=== PATIENT | male | born 1970 | race Hispanic/Latino ===

== ENCOUNTER → 2016-10-03 | Outpatient (REF) | payer OTHER ==
[2016-10-03 16:39] LABS: ALBUMIN 4.4 GM/DL (3.2-5.2); ALBUMIN/GLOBULIN RATIO 1.26 (1.00-1.93); ALKALINE PHOSPHATASE 89 U/L (45-117); ALT/SGPT 145 U/L (12-78); ANION GAP 6 MEQ/L (8-16); AST/SGOT 59 U/L (15-37); BILIRUBIN,TOTAL 0.6 MG/DL (0.2-1.0); BLOOD UREA NITROGEN 9 MG/DL (7-18); CALCIUM LEVEL 9.4 MG/DL (8.5-10.1); CARBON DIOXIDE LEVEL 31 MEQ/L (21-32); CHLORIDE LEVEL 105 MEQ/L (98-107); CREATININE FOR GFR 0.83 MG/DL (0.70-1.30); GLOMERULAR FILTRATION RATE > 60.0 (>60); GLUCOSE, FASTING 74 MG/DL (70-105); POTASSIUM SERUM 4.1 MEQ/L (3.5-5.1); SODIUM LEVEL 142 MEQ/L (136-145); TOTAL PROTEIN 7.9 GM/DL (6.4-8.2)
== END ==
LOC: M SFHCPLAZ 12:07
PROVIDERS: ATTEND Internal Medicine Infectious Disease
DX: B20 Human immunodeficiency virus [HIV] disease (principal); Z11.3 Encounter for screening for infections with a predominantly sexual mode of transmission; Z86.19 Personal history of other infectious and parasitic diseases

== ENCOUNTER → 2016-11-07 | Outpatient (CLI) | payer OTHER ==
[2016-11-07 14:10] LABS: BASO % 0.4 % (0.0-1.0); EOS # 0.4 K/mm3 (0.0-0.50); EOS % 7.9 % (0.0-3.0); LARGE UNSTAINED CELL # 0.1 K/mm3 (0.0-0.4); LARGE UNSTAINED CELL % 1.6 % (0.0-4.0); LYMPH # 0.9 K/mm3 (1.5-4.5); LYMPH % 14.5 % (24.0-44.0); MEAN CORPUSCULAR HEMOGLOBIN 32.1 pg (27.0-33.0); MEAN CORPUSCULAR HGB CONC 34.7 g/dl (32.0-36.5); MEAN CORPUSCULAR VOLUME 92.5 fl (80.0-96.0); MONO # 0.4 K/mm3 (0.0-0.8); MONO % 6.6 % (0.0-5.0); NEUTROPHILS % 69.1 % (36.0-66.0); PLATELET COUNT, AUTOMATED 229 k/mm3 (150-450); WHITE BLOOD COUNT 5.7 K/mm3 (4.0-10.0)
[2016-11-07 14:20] LABS: ALBUMIN 4.1 GM/DL (3.2-5.2); ALBUMIN/GLOBULIN RATIO 1.17 (1.00-1.93); ALKALINE PHOSPHATASE 91 U/L (45-117); ALT/SGPT 242 U/L (12-78); AMYLASE 76 U/L (25-115); ANION GAP 6 MEQ/L (8-16); AST/SGOT 193 U/L (15-37); BILIRUBIN,TOTAL 0.8 MG/DL (0.2-1.0); BLOOD UREA NITROGEN 8 MG/DL (7-18); CALCIUM LEVEL 9.5 MG/DL (8.5-10.1); CARBON DIOXIDE LEVEL 28 MEQ/L (21-32); CHLORIDE LEVEL 107 MEQ/L (98-107); CREATININE FOR GFR 0.87 MG/DL (0.70-1.30); GLOMERULAR FILTRATION RATE > 60.0 (>60); GLUCOSE, FASTING 98 MG/DL (70-105); SODIUM LEVEL 141 MEQ/L (136-145); TOTAL PROTEIN 7.6 GM/DL (6.4-8.2)
--- NOTE | 2016-11-07 14:23 | REP ---
ACUTE ABDOMINAL SERIES: 11/07/2016 COMPARISON: 08/07/2009 CLINICAL HISTORY: Abdominal pain. PA CHEST: Lungs are well inflated without infiltrate, effusion, atelectasis or mass. Heart, mediastinal and hilar contours normal. Airway intact. Bones grossly unremarkable. No free air. FLAT UPRIGHT ABDOMEN: There is gas and stool scattered in the colon without dilatation. Small bowel loops show scattered gas and are not dilated. A few air-fluid levels in these nondilated loops as a nonspecific finding. No abnormal calcifications overlying the renal fossae or expected course of the ureter. No free air. The bones with minor degenerative changes lower lumbar spine and hips. IMPRESSION: 1. Nonspecific gas pattern without obstruction, mass or free air and a few air-fluid levels in nondilated small bowel loops might reflect some gastroenteritis or ileus. 2. Bones with minor degenerative changes and no abnormal calcifications in the abdomen or pelvis. 3. PA chest negative. Signed by Quang Travis MD 11/07/2016 07:11 P
== END ==
LOC: M LAB 13:24
PROVIDERS: ATTEND Physician Assistant
DX: R10.9 Unspecified abdominal pain (principal); R11.10 Vomiting, unspecified

== ENCOUNTER → 2016-11-19 | Outpatient (CLI) | payer MEDICAID, OTHER | LOC: M OUTALCOH 12:17 | PROVIDERS: ATTEND Psychiatry & Neurology Psychiatry | DX: F14.20 Cocaine dependence, uncomplicated (principal); F10.10 Alcohol abuse, uncomplicated ==

== ENCOUNTER 2016-12-05 10:50 | Outpatient (RCR) | payer MEDICAID | END 2016-12-06 | LOC: M OUTALCOH 10:50 | PROVIDERS: ATTEND Psychiatry & Neurology Psychiatry | DX: F10.10 Alcohol abuse, uncomplicated (principal); F14.20 Cocaine dependence, uncomplicated; F17.200 Nicotine dependence, unspecified, uncomplicated ==

== ENCOUNTER 2017-01-03 16:00 | Outpatient (RCR) | payer MEDICAID | END 2017-01-05 | LOC: M OUTALCOH 16:00 | PROVIDERS: ATTEND Psychiatry & Neurology Psychiatry | DX: F10.10 Alcohol abuse, uncomplicated (principal); F14.20 Cocaine dependence, uncomplicated; F17.200 Nicotine dependence, unspecified, uncomplicated ==

== ENCOUNTER 2017-02-14 13:00 | Outpatient (RCR) | payer MEDICAID | END 2017-03-07 | LOC: M OUTALCOH 13:00 | PROVIDERS: ATTEND Psychiatry & Neurology Psychiatry | DX: F10.10 Alcohol abuse, uncomplicated (principal); F14.20 Cocaine dependence, uncomplicated; F17.200 Nicotine dependence, unspecified, uncomplicated ==

== ENCOUNTER 2017-03-15 10:33 | Outpatient (RCR) | payer MEDICAID | END 2017-04-07 | LOC: M OUTALCOH 10:33 | DX: F10.10 Alcohol abuse, uncomplicated (principal); F14.20 Cocaine dependence, uncomplicated; F17.200 Nicotine dependence, unspecified, uncomplicated ==

== ENCOUNTER 2017-04-11 15:40 | Outpatient (RCR) | payer MEDICAID | END 2017-05-08 | LOC: M OUTALCOH 15:40 | DX: F10.10 Alcohol abuse, uncomplicated (principal); F14.20 Cocaine dependence, uncomplicated; F17.200 Nicotine dependence, unspecified, uncomplicated ==

== ENCOUNTER → 2017-05-08 | Outpatient (CLI) | payer MEDICAID | LOC: M WUC 19:16 | DX: S69.92XA Unspecified injury of left wrist, hand and finger(s), initial encounter (principal); X58.XXXA Exposure to other specified factors, initial encounter; Y92.89 Other specified places as the place of occurrence of the external cause | CPT/HCPCS: 73130 ==

== ENCOUNTER 2019-08-24 12:40 | Emergency (ER) | payer OTHER, SELFPAY ==
[~2019-08-24] VITALS: Ht 177.8 cm; Wt 84.4 kg
[2019-08-24 12:41] VITALS: BP 163/102
[2019-08-24] MEDS ORDERED: KEFL500C17 PO (13:27)
[2019-08-24] MEDS ORDERED: NAPR-837 PO (13:27)
[2019-08-24] MEDS ORDERED: CEPHALEXIN 500 MG CAP PO ONE (13:30)
== END 2019-08-24 13:34 | disposition home or self-care (01) ==
LOC: M ED 12:40
DX: L03.011 Cellulitis of right finger (principal)

== ENCOUNTER 2023-04-08 22:19 | Emergency (ER) | payer MEDICAID, SELFPAY ==
[~2023-04-08] VITALS: Ht 170.2 cm; Wt 67.4 kg
[~2023-04-08 22:19] MED LIST: KEFL500C17 PO; NAPR-837 PO
[2023-04-08 23:07] LABS: BASO % 0.1 % (0.0-1.0); EOS % 0.1 % (0.0-3.0); HEMATOCRIT 42.3 % (42.0-52.0); HEMOGLOBIN 14.1 g/dl (13.5-17.5); LYMPH # 1.4 10^3/uL (1.5-5.0); LYMPH % 13.5 % (24.0-44.0); MEAN CORPUSCULAR HEMOGLOBIN 27.6 pg (27.0-33.0); MEAN CORPUSCULAR HGB CONC 33.3 g/dl (32.0-36.5); MEAN CORPUSCULAR VOLUME 82.8 fl (80.0-96.0); MONO # 0.5 10^3/uL (0.0-0.8); MONO % 4.8 % (2.0-8.0); NEUTROPHILS # 8.4 10^3/uL (1.5-8.5); NEUTROPHILS % 80.6 % (36.0-66.0); PLATELET COUNT, AUTOMATED 276 10^3/uL (150-450); RED BLOOD COUNT 5.11 10^6/uL (4.30-6.10); WHITE BLOOD COUNT 10.4 10^3/uL (4.0-10.0)
[2023-04-08 23:27] LABS: RSV AMPLIFICATION NEGATIVE (NEGATIVE)
[2023-04-08 23:29] LABS: LIPASE 28 U/L (12-53)
[2023-04-08 23:32] LABS: ALBUMIN 3.1 G/DL (3.2-5.2); ALKALINE PHOSPHATASE 93 U/L (46-116); ALT/SGPT 92 U/L (7.0-40); AST/SGOT 88 U/L (<34); BILIRUBIN,DIRECT 0.3 MG/DL (<0.4); BILIRUBIN,TOTAL 0.5 MG/DL (0.3-1.2); BLOOD UREA NITROGEN 22 MG/DL (9-23); CALCIUM LEVEL 8.4 MG/DL (8.5-10.1); CARBON DIOXIDE LEVEL 25 MMOL/L (20-31); CHLORIDE LEVEL 98 MMOL/L (98-107); CREATININE FOR GFR 0.88 MG/DL (0.70-1.30); GLOMERULAR FILTRATION RATE > 60.0 (>56); GLUCOSE, FASTING 104 MG/DL (60-100); POTASSIUM SERUM 4.2 MMOL/L (3.5-5.1); SODIUM LEVEL 131 MMOL/L (136-145); TOTAL PROTEIN 8.8 G/DL (5.7-8.2)
[2023-04-09] MEDS ORDERED: NS 1,000 ML IV ONE ×2 (00:45→01:35)
[2023-04-09] MEDS ORDERED: ONDANSETRON 4MG 2ML VIAL IV ONE (00:45)
[2023-04-09] MEDS ORDERED: ACETAMINOPHEN 325 MG TAB PO ONE (01:20)
[2023-04-09] MEDS ORDERED: cefTRIAXone SOD 1 GM in D5W MINI-BAG PLUS 50 ML IV ONE (01:50)
[2023-04-09] MEDS ORDERED: AZITHROMYCIN 250MG TABLET PO ONE (01:50)
[2023-04-09] MEDS ORDERED: IBUPROFEN 600MG TAB PO ONE (02:45)
[2023-04-09] MEDS ORDERED: CEFD1CAP9 PO (02:52)
[2023-04-09] MEDS ORDERED: ZITHTAB PO (02:52)
[2023-04-09] MEDS ORDERED: PROM25TA12 PO (02:52)
[2023-04-09 04:00] VITALS: BP 118/76; TEMP 100.3; O2SAT 97
== END 2023-04-09 04:00 | disposition home or self-care (01) ==
LOC: M ED 22:19 → EDBD 22:19 → M ED 04-09 04:00
DX: J09.X2 Influenza due to identified novel influenza A virus with other respiratory manifestations (principal); J18.9 Pneumonia, unspecified organism; Z79.2 Long term (current) use of antibiotics; Z79.899 Other long term (current) drug therapy
CPT/HCPCS: 71045; 80048; 80076; 83605; 83690; 85025; 87040; 87077; 87185; 87631; 96365; 96375; 99284; J0696; J2405

== ENCOUNTER 2023-07-12 21:24 | Inpatient (IN) | payer MEDICAID, SELFPAY ==
[~2023-07-12] VITALS: Ht 165.1 cm; Wt 69.1 kg
[~2023-07-12 21:24] MED LIST changes: +CEFD1CAP9 PO; +PROM25TA12 PO; +ZITHTAB PO
[2023-07-12] MEDS: NS 1,000 ML IV ONE (22:12)
[2023-07-12] MEDS: ACETAMINOPHEN 325 MG TAB PO ONE (22:19)
[2023-07-12 22:30] LABS: BASO % 0.2 % (0.0-1.0); HEMATOCRIT 39.1 % (42.0-52.0); LYMPH % 8.4 % (24.0-44.0); MEAN CORPUSCULAR HEMOGLOBIN 27.4 pg (27.0-33.0); MEAN CORPUSCULAR HGB CONC 33.2 g/dl (32.0-36.5); MEAN CORPUSCULAR VOLUME 82.3 fl (80.0-96.0); MONO # 0.6 10^3/uL (0.0-0.8); MONO % 4.7 % (2.0-8.0); NEUTROPHILS # 10.1 10^3/uL (1.5-8.5); NEUTROPHILS % 84.4 % (36.0-66.0); PLATELET COUNT, AUTOMATED 173 10^3/uL (150-450); RED BLOOD COUNT 4.75 10^6/uL (4.30-6.10)
[2023-07-12 22:34] LABS: ERYTHROCYTE SEDIMENTATION RATE 98 mm/hr (0-20)
[2023-07-12 22:51] LABS: INR 1.35; PARTIAL THROMBOPLASTIN TIME 31.4 SECONDS (24.8-34.2); PROTHROMBIN TIME 16.2 SECONDS (12.5-14.5)
[2023-07-12 22:56] LABS: C REACTIVE PROTEIN QUANTITATIV 25.3 MG/DL (<1.0)
[2023-07-12 22:57] LABS: BILIRUBIN,DIRECT 0.4 MG/DL (<0.4); BILIRUBIN,TOTAL 0.8 MG/DL (0.3-1.2); TOTAL PROTEIN 7.5 G/DL (5.7-8.2)
[2023-07-12] MEDS ORDERED: ISOVUE-370 76% 100ML VIAL As Ordered ONE (23:10)
[2023-07-12] MEDS: NS 1,000 ML IV SCH (23:57)
[2023-07-13] MEDS ORDERED: VANCOMYCIN HCL 1,250 MG in NS 250 ML IV ONE
[2023-07-13] MEDS: NS 1,000 ML IV ONE
[2023-07-13] MEDS: IBUPROFEN 600MG TAB PO ONE (00:04)
[2023-07-13] MEDS ORDERED: HOME MED LIST COMPLETE! XX SCH (00:15)
[2023-07-13] MEDS: VANCOMYCIN HCL 500 MG in D5W MINI-BAG PLUS 100 ML IV ONE (00:32)
[2023-07-13] MEDS ORDERED: MAALOX 30 ML SUSP *UDC PO PRN (01:45)
[2023-07-13] MEDS ORDERED: MOM 30ML SUSPENSION UDC PO PRN (01:45)
[2023-07-13] MEDS: VANCOMYCIN HCL 750 MG, VIAL MATE ADAPTER 1 EACH in D5W 250 ML IV ONE (01:48)
[2023-07-13 02:07] LABS: RSV AMPLIFICATION NEGATIVE (NEGATIVE)
[2023-07-13 02:18] LABS: MAGNESIUM LEVEL 1.6 MG/DL (1.8-2.4)
[2023-07-13 03:17] LABS: PROCALCITONIN 4.44 ng/ml
[2023-07-13] MEDS: KCL 20MEQ IN D5/0.45NS 1000ML 1,000 ML IV SCH (03:29)
[2023-07-13] MEDS: IBUPROFEN 600MG TAB PO SCH (05:42)
[2023-07-13] MEDS: HEPARIN SOD (PORCINE) 5000UNITS/ML 1ML VIAL/SYRINGE SC SCH (05:43)
[2023-07-13 07:38] LABS: HEMOGLOBIN 11.9 g/dl (13.5-17.5); MEAN CORPUSCULAR VOLUME 82.4 fl (80.0-96.0); PLATELET COUNT, AUTOMATED 144 10^3/uL (150-450); RED BLOOD COUNT 4.25 10^6/uL (4.30-6.10); WHITE BLOOD COUNT 9.8 10^3/uL (4.0-10.0)
[2023-07-13 07:54] LABS: ERYTHROCYTE SEDIMENTATION RATE 69 mm/hr (0-20)
[2023-07-13 07:58] LABS: BLOOD UREA NITROGEN 29 MG/DL (9-23); CALCIUM LEVEL 7.2 MG/DL (8.5-10.1); CARBON DIOXIDE LEVEL 23 MMOL/L (20-31); CHLORIDE LEVEL 104 MMOL/L (98-107); CREATININE FOR GFR 0.96 MG/DL (0.70-1.30); GLOMERULAR FILTRATION RATE > 60.0 (>56); GLUCOSE, FASTING 112 MG/DL (60-100); POTASSIUM SERUM 3.1 MMOL/L (3.5-5.1); SODIUM LEVEL 135 MMOL/L (136-145)
[2023-07-13 08:03] LABS: ATYPICAL LYMPH 3 % (0-5); BASOPHILS 1 % (0-1); LYMPHOCYTES 7 % (16-44); MONOCYTES 7 % (0-5); NEUTROPHILS 72 % (28-66)
[2023-07-13 08:07] LABS: PLATELET CLUMPS SMALL AMT; PLATELET ESTIMATE DECREASED (NORMAL)
[2023-07-13 08:56] LABS: BARBITURATES URINE NEGATIVE (NEGATIVE); BENZODIAZEPINES URINE NEGATIVE (NEGATIVE); CANNABINOIDS URINE NEGATIVE (NEGATIVE); COCAINE METABOLITE URINE NEGATIVE (NEGATIVE); METHADONE URINE NEGATIVE (NEGATIVE); OPIATES URINE NEGATIVE (NEGATIVE); PHENCYCLIDINE URINE NEGATIVE (NEGATIVE)
[2023-07-13 08:58] LABS: AMPHETAMINES LEVEL URINE POSITIVE (NEGATIVE)
[2023-07-13] MEDS: DOCUSATE SODIUM 100MG CAPSULE PO SCH (09:00)
[2023-07-13] MEDS: VANCOMYCIN HCL 1,000 MG, VIAL MATE ADAPTER 1 EACH in NS 250 ML IV SCH (09:02)
[2023-07-13] MEDS: LACTOBACILLUS ACIDOPHILUS CAP (BACID) PO SCH (09:03)
[2023-07-13 14:16] VITALS: BP 123/82; TEMP 97.3; O2SAT 95
[2023-07-13] MEDS: POTASSIUM CHLORIDE 10MEQ SR TABLET PO SCH (16:27)
[2023-07-13 16:54] LABS: HEPATITIS B CORE ANTIBODY IGM NEGATIVE (NEGATIVE)
[2023-07-13 16:57] LABS: HEPATITIS C VIRUS ABY INDEX > 11.00 INDEX (<0.8)
[2023-07-13 21:00] VITALS: BP 119/82; TEMP 97.3; O2SAT 95
[2023-07-13] MEDS: NITAZOXANIDE 500 MG TAB (ALINIA) PO SCH (23:16)
[2023-07-14 05:47] VITALS: BP 112/76; TEMP 97.2; O2SAT 95
[2023-07-14 06:44] LABS: HEMATOCRIT 34.6 % (42.0-52.0); HEMOGLOBIN 11.5 g/dl (13.5-17.5); MEAN CORPUSCULAR HEMOGLOBIN 27.6 pg (27.0-33.0); MEAN CORPUSCULAR HGB CONC 33.2 g/dl (32.0-36.5); PLATELET COUNT, AUTOMATED 124 10^3/uL (150-450); RED BLOOD COUNT 4.17 10^6/uL (4.30-6.10); WHITE BLOOD COUNT 4.7 10^3/uL (4.0-10.0)
[2023-07-14 07:15] LABS: PROCALCITONIN 4.71 ng/ml
[2023-07-14 07:19] LABS: ALKALINE PHOSPHATASE 73 U/L (46-116); ALT/SGPT 49 U/L (7.0-40); AST/SGOT 87 U/L (<34); BILIRUBIN,TOTAL 0.4 MG/DL (0.3-1.2); BLOOD UREA NITROGEN 22 MG/DL (9-23); CALCIUM LEVEL 7.4 MG/DL (8.5-10.1); CARBON DIOXIDE LEVEL 24 MMOL/L (20-31); CHLORIDE LEVEL 105 MMOL/L (98-107); CREATININE FOR GFR 0.71 MG/DL (0.70-1.30); GLOMERULAR FILTRATION RATE > 60.0 (>56); GLUCOSE, FASTING 122 MG/DL (60-100); MAGNESIUM LEVEL 1.7 MG/DL (1.8-2.4); POTASSIUM SERUM 3.7 MMOL/L (3.5-5.1); SODIUM LEVEL 135 MMOL/L (136-145); TOTAL PROTEIN 5.8 G/DL (5.7-8.2)
[2023-07-14] MEDS: VANCOMYCIN HCL 1,000 MG, VIAL MATE ADAPTER 1 EACH in D5W 250 ML IV SCH (10:12)
[2023-07-14] MEDS: MAGNESIUM OXIDE 400MG TAB (MAG-OX) PO SCH (12:06)
[2023-07-14] MEDS: cefTRIAXone SOD 2 GM in D5W MINI-BAG PLUS 50 ML IV SCH (12:07)
[2023-07-14 14:00] VITALS: BP 117/87; TEMP 97.2; O2SAT 100
[2023-07-14 14:15] LABS: GC DNA AMPLIFICATION NEGATIVE (NEGATIVE)
[2023-07-14] MEDS: ACETAMINOPHEN TAB 650MG DOSE (2X325MG) PO PRN (20:13)
[2023-07-14 21:00] VITALS: BP 118/86; TEMP 97.5; O2SAT 100
[2023-07-15] MEDS: KETOROLAC TROMETHAMINE 10 MG TAB PO PRN (01:59)
[2023-07-15] MEDS: methocarbamoL 500 MG TAB PO PRN (01:59)
[2023-07-15 05:35] VITALS: BP 120/86; TEMP 97.9; O2SAT 98
[2023-07-15 08:28] LABS: ALKALINE PHOSPHATASE 111 U/L (46-116); ALT/SGPT 73 U/L (7.0-40); AST/SGOT 108 U/L (<34); BILIRUBIN,TOTAL 0.3 MG/DL (0.3-1.2); BLOOD UREA NITROGEN 14 MG/DL (9-23); CALCIUM LEVEL 7.8 MG/DL (8.5-10.1); CARBON DIOXIDE LEVEL 24 MMOL/L (20-31); CHLORIDE LEVEL 106 MMOL/L (98-107); CREATININE FOR GFR 0.66 MG/DL (0.70-1.30); GLOMERULAR FILTRATION RATE > 60.0 (>56); GLUCOSE, FASTING 126 MG/DL (60-100); MAGNESIUM LEVEL 1.7 MG/DL (1.8-2.4); POTASSIUM SERUM 3.7 MMOL/L (3.5-5.1); SODIUM LEVEL 139 MMOL/L (136-145); TOTAL PROTEIN 5.8 G/DL (5.7-8.2)
[2023-07-15] MEDS: BACTRIM 160MG/800MG DS TAB PO SCH (09:00)
[2023-07-15] MEDS: MORPHINE 2 MG/ML 1ML VIAL IV ONE (09:01)
[2023-07-15 09:06] LABS: BASO % 0.4 % (0.0-1.0); EOS # 0.1 10^3/uL (0.0-0.5); EOS % 1.5 % (0.0-3.0); HEMATOCRIT 35.3 % (42.0-52.0); HEMOGLOBIN 11.6 g/dl (13.5-17.5); LYMPH % 21.1 % (24.0-44.0); MEAN CORPUSCULAR HEMOGLOBIN 27.5 pg (27.0-33.0); MEAN CORPUSCULAR HGB CONC 32.9 g/dl (32.0-36.5); MEAN CORPUSCULAR VOLUME 83.6 fl (80.0-96.0); MONO # 0.4 10^3/uL (0.0-0.8); MONO % 8.7 % (2.0-8.0); NEUTROPHILS # 3.2 10^3/uL (1.5-8.5); NEUTROPHILS % 67.2 % (36.0-66.0); PLATELET COUNT, AUTOMATED 151 10^3/uL (150-450); RED BLOOD COUNT 4.22 10^6/uL (4.30-6.10); WHITE BLOOD COUNT 4.7 10^3/uL (4.0-10.0)
[2023-07-15] MEDS: MAG SULF 1GM/100ML (MAG RUN) 1 GM in IV 1 EA IV ONE (12:09)
[2023-07-15 14:00] VITALS: BP 118/86; TEMP 98.2; O2SAT 98
[2023-07-15] MEDS: BIKTARVY PO SCH (14:05)
[2023-07-15] MEDS: NITAZOXANIDE 500 MG TAB (ALINIA) PO SCH (14:05)
[2023-07-15] MEDS: SODIUM CHLORIDE HYPERTONIC 3% 4ML NEB SOL NEB ONE (17:58)
[2023-07-15 21:00] VITALS: BP 128/89; TEMP 99.3; O2SAT 97
[2023-07-15] MEDS: PERCOCET 5MG/325MG TAB PO PRN (21:37)
[2023-07-16 01:23] VITALS: BP 128/88; TEMP 98.2; O2SAT 95
[2023-07-16 06:15] VITALS: BP 126/87; TEMP 98.8; O2SAT 97
[2023-07-16 07:51] LABS: BASO % 0.5 % (0.0-1.0); EOS # 0.1 10^3/uL (0.0-0.5); EOS % 2.4 % (0.0-3.0); HEMATOCRIT 35.3 % (42.0-52.0); HEMOGLOBIN 11.6 g/dl (13.5-17.5); LYMPH # 0.8 10^3/uL (1.5-5.0); LYMPH % 20.5 % (24.0-44.0); MEAN CORPUSCULAR HEMOGLOBIN 27.9 pg (27.0-33.0); MEAN CORPUSCULAR HGB CONC 32.9 g/dl (32.0-36.5); MEAN CORPUSCULAR VOLUME 84.9 fl (80.0-96.0); MONO # 0.4 10^3/uL (0.0-0.8); MONO % 9.5 % (2.0-8.0); NEUTROPHILS # 2.4 10^3/uL (1.5-8.5); NEUTROPHILS % 63.4 % (36.0-66.0); PLATELET COUNT, AUTOMATED 173 10^3/uL (150-450); RED BLOOD COUNT 4.16 10^6/uL (4.30-6.10); WHITE BLOOD COUNT 3.8 10^3/uL (4.0-10.0)
[2023-07-16 08:03] LABS: ALBUMIN 2.2 G/DL (3.2-5.2); ALKALINE PHOSPHATASE 122 U/L (46-116); ALT/SGPT 68 U/L (7.0-40); AST/SGOT 83 U/L (<34); BILIRUBIN,TOTAL 0.3 MG/DL (0.3-1.2); BLOOD UREA NITROGEN 6 MG/DL (9-23); CALCIUM LEVEL 7.4 MG/DL (8.5-10.1); CARBON DIOXIDE LEVEL 26 MMOL/L (20-31); CHLORIDE LEVEL 108 MMOL/L (98-107); CREATININE FOR GFR 0.67 MG/DL (0.70-1.30); GLOMERULAR FILTRATION RATE > 60.0 (>56); GLUCOSE, FASTING 107 MG/DL (60-100); MAGNESIUM LEVEL 1.8 MG/DL (1.8-2.4); POTASSIUM SERUM 3.5 MMOL/L (3.5-5.1); SODIUM LEVEL 139 MMOL/L (136-145); TOTAL PROTEIN 6.1 G/DL (5.7-8.2)
[2023-07-16] MEDS ORDERED: NON-FORMULARY COMPOUNDED MEDICATION PO SCH (09:00)
[2023-07-16] MEDS: POTASSIUM CHLORIDE 10MEQ SR TABLET PO ONE (13:13)
[2023-07-16 14:00] VITALS: BP 127/92; TEMP 98.6; O2SAT 92
[2023-07-16] MEDS ORDERED: SODIUM CHLORIDE NASAL 0.65% SPRAY BTL (OCEAN) PRN (16:40)
[2023-07-16 17:07] LABS: % CD8 Pos Lymph 66.1 % (12.0-35.5); %CD4 Pos Lymphs 5.1 % (30.8-58.5); ABS Eosinophils 0.1 x10E3/uL (0.0-0.4); ABS Lymphs 0.9 x10E3/uL (0.7-3.1); ABS Monocytes 0.4 x10E3/uL (0.1-0.9); ABS Neutophils 3.5 x10E3/uL (1.4-7.0); Abs CD4 Helper 46 /uL (359-1519); Abs CD8 Suppres 595 /uL (109-897); CD4/CD8 Ratio 0.08 (0.92-3.72); Eosinophils 2 % (Not Estab.); HCT 33.5 % (37.5-51.0); HGB 11.3 g/dL (13.0-17.7); Imm ABS Grans 0.1 x10E3/uL (0.0-0.1); Immature Grans 1 % (Not Estab.); Lymphocytes 17 % (Not Estab.); MCH 27.2 pg (26.6-33.0); MCHC 33.7 g/dL (31.5-35.7); MCV 81 fL (79-97); Monocytes 8 % (Not Estab.); Neutrophils 72 % (Not Estab.); Platelets 163 x10E3/uL (150-450); RBC 4.15 x10E6/uL (4.14-5.80); RDW 13.1 % (11.6-15.4); WBC 4.9 x10E3/uL (3.4-10.8)
[2023-07-16 19:41] VITALS: BP 128/91; TEMP 99; O2SAT 92
[2023-07-16] MEDS: HYDROCORTISONE 1% OINTMENT 30GM EXT SCH (20:24)
[2023-07-17 04:58] VITALS: BP 129/92; TEMP 98.8; O2SAT 100
[2023-07-17 06:21] LABS: BASO % 0.5 % (0.0-1.0); EOS # 0.2 10^3/uL (0.0-0.5); EOS % 4.6 % (0.0-3.0); HEMATOCRIT 33.9 % (42.0-52.0); LYMPH # 0.9 10^3/uL (1.5-5.0); LYMPH % 24.3 % (24.0-44.0); MEAN CORPUSCULAR HEMOGLOBIN 27.4 pg (27.0-33.0); MEAN CORPUSCULAR HGB CONC 32.4 g/dl (32.0-36.5); MEAN CORPUSCULAR VOLUME 84.3 fl (80.0-96.0); MONO # 0.5 10^3/uL (0.0-0.8); MONO % 12.1 % (2.0-8.0); NEUTROPHILS # 2.1 10^3/uL (1.5-8.5); NEUTROPHILS % 55.3 % (36.0-66.0); PLATELET COUNT, AUTOMATED 207 10^3/uL (150-450); RED BLOOD COUNT 4.02 10^6/uL (4.30-6.10); WHITE BLOOD COUNT 3.7 10^3/uL (4.0-10.0)
[2023-07-17 06:54] LABS: BLOOD UREA NITROGEN 5 MG/DL (9-23); CALCIUM LEVEL 7.7 MG/DL (8.5-10.1); CARBON DIOXIDE LEVEL 26 MMOL/L (20-31); CHLORIDE LEVEL 106 MMOL/L (98-107); CREATININE FOR GFR 0.63 MG/DL (0.70-1.30); GLOMERULAR FILTRATION RATE > 60.0 (>56); GLUCOSE, FASTING 129 MG/DL (60-100); POTASSIUM SERUM 3.8 MMOL/L (3.5-5.1); SODIUM LEVEL 139 MMOL/L (136-145)
[2023-07-17 13:45] VITALS: BP 116/77; TEMP 98.1; O2SAT 98
[2023-07-17 14:09] LABS: CRYPTOCOCCUS ANTIGEN SER Negative (Negative)
[2023-07-17 16:09] LABS: HIV-1 RNA PCR QUANT 1 LC162545 1180000 copies/mL (.); HIV-1 RNA PCR QUANT 2 LC162545 6.072 (.)
[2023-07-17 21:33] VITALS: BP 118/79; TEMP 98.4; O2SAT 100
[2023-07-18 06:00] VITALS: BP 126/81; TEMP 98.5; O2SAT 93
[2023-07-18 06:52] LABS: BASO % 0.7 % (0.0-1.0); EOS # 0.3 10^3/uL (0.0-0.5); EOS % 6.6 % (0.0-3.0); HEMATOCRIT 36.3 % (42.0-52.0); LYMPH % 24.4 % (24.0-44.0); MEAN CORPUSCULAR HEMOGLOBIN 27.8 pg (27.0-33.0); MEAN CORPUSCULAR HGB CONC 33.1 g/dl (32.0-36.5); MEAN CORPUSCULAR VOLUME 84.2 fl (80.0-96.0); MONO # 0.4 10^3/uL (0.0-0.8); MONO % 8.8 % (2.0-8.0); NEUTROPHILS # 2.3 10^3/uL (1.5-8.5); NEUTROPHILS % 55.1 % (36.0-66.0); PLATELET COUNT, AUTOMATED 286 10^3/uL (150-450); RED BLOOD COUNT 4.31 10^6/uL (4.30-6.10); WHITE BLOOD COUNT 4.1 10^3/uL (4.0-10.0)
[2023-07-18 07:14] LABS: BLOOD UREA NITROGEN 8 MG/DL (9-23); CALCIUM LEVEL 8.1 MG/DL (8.5-10.1); CARBON DIOXIDE LEVEL 26 MMOL/L (20-31); CHLORIDE LEVEL 105 MMOL/L (98-107); CREATININE FOR GFR 0.64 MG/DL (0.70-1.30); GLOMERULAR FILTRATION RATE > 60.0 (>56); GLUCOSE, FASTING 107 MG/DL (60-100); MAGNESIUM LEVEL 1.9 MG/DL (1.8-2.4); POTASSIUM SERUM 4.2 MMOL/L (3.5-5.1); SODIUM LEVEL 138 MMOL/L (136-145)
[2023-07-18 07:46] LABS: HIV 1&2 SCREEN REACTIVE (NEGATIVE)
[2023-07-18] MEDS ORDERED: BIKT1TAB PO (11:59)
[2023-07-18] MEDS ORDERED: BACT800T5 PO (12:00)
[2023-07-18 14:35] VITALS: BP 125/82; TEMP 98.4; O2SAT 100
[2023-07-18] MEDS: NITAZOXANIDE 500 MG TAB (ALINIA) PO SCH (20:10)
[2023-07-18 20:53] VITALS: BP 109/78; TEMP 98.6; O2SAT 99
[2023-07-19 02:12] LABS: HEPATITIS B CORE ANTIBODY IGG Positive (Negative)
[2023-07-19 06:00] VITALS: BP 118/82; TEMP 98.4; O2SAT 98
[2023-07-19] MEDS ORDERED: MAGN400T2 PO (12:51)
[2023-07-19] MEDS ORDERED: AMOX875T PO (12:51)
[2023-07-19] MEDS ORDERED: ALIN500T2 PO (12:51)
[2023-07-19] MEDS ORDERED: IBUP-1114 PO (12:52)
[2023-07-19 13:47] VITALS: BP 132/91
== END 2023-07-19 14:05 | disposition home or self-care (01) | DRG 890 ==
LOC: EDBD 21:24 → M ED 21:24 → M ED INP 07-13 01:42 → M MSPAV 07-13 14:10
PROVIDERS: ADMIT Preventive Medicine Undersea and Hyperbaric Medicine; ATTEND Internal Medicine
PROC: B246ZZZ Ultrasonography of Right and Left Heart (ICD-10-PCS; principal; 2023-07-13)
DX: A41.9 Sepsis, unspecified organism (principal); J85.0 Gangrene and necrosis of lung; B45.9 Cryptococcosis, unspecified; A07.2 Cryptosporidiosis; D69.6 Thrombocytopenia, unspecified; B20 Human immunodeficiency virus [HIV] disease; A08.11 Acute gastroenteropathy due to Norwalk agent; I27.20 Pulmonary hypertension, unspecified; I80.9 Phlebitis and thrombophlebitis of unspecified site; I82.612 Acute embolism and thrombosis of superficial veins of left upper extremity; J98.4 Other disorders of lung; L03.114 Cellulitis of left upper limb; B19.20 Unspecified viral hepatitis C without hepatic coma; Z59.00 Homelessness unspecified

== ENCOUNTER → 2023-08-02 | Outpatient (CLI) | payer MEDICAID ==
[~2023-08-02] MED LIST changes: +ALIN500T2 PO; +AMOX875T PO; +BACT800T5 PO; +BIKT1TAB PO; +IBUP-1114 PO; +MAGN400T2 PO
== END ==
LOC: M RAD 13:11
PROVIDERS: ATTEND Internal Medicine Infectious Disease
DX: J85.0 Gangrene and necrosis of lung (principal)

== ENCOUNTER → 2023-08-07 | Outpatient (CLI) | payer MEDICAID | LOC: M OUTALCOH 07:58 | PROVIDERS: ATTEND Psychiatry & Neurology Psychiatry | DX: Z53.9 Procedure and treatment not carried out, unspecified reason (principal) ==

== ENCOUNTER 2023-08-30 13:19 | Outpatient (RCR) | payer MEDICAID | END 2023-09-06 | LOC: M OUTALCOH 13:19 | PROVIDERS: ATTEND Psychiatry & Neurology Psychiatry | DX: F15.20 Other stimulant dependence, uncomplicated (principal); F17.200 Nicotine dependence, unspecified, uncomplicated ==

== ENCOUNTER 2023-10-04 15:00 | Outpatient (RCR) | payer MEDICAID | END 2023-10-06 | LOC: M OUTALCOH 15:00 | PROVIDERS: ATTEND Psychiatry & Neurology Psychiatry | DX: F15.20 Other stimulant dependence, uncomplicated (principal); F17.200 Nicotine dependence, unspecified, uncomplicated ==

== ENCOUNTER 2023-11-01 13:16 | Outpatient (RCR) | payer MEDICAID | END 2023-11-06 | LOC: M OUTALCOH 13:16 | PROVIDERS: ATTEND Psychiatry & Neurology Psychiatry | DX: F15.20 Other stimulant dependence, uncomplicated (principal); F17.200 Nicotine dependence, unspecified, uncomplicated ==

== ENCOUNTER 2024-01-01 14:21 | Outpatient (RCR) | payer OTHER | END 2024-01-06 | LOC: M OUTALCOH 14:21 | PROVIDERS: ATTEND Psychiatry & Neurology Psychiatry | DX: F15.20 Other stimulant dependence, uncomplicated (principal); F17.200 Nicotine dependence, unspecified, uncomplicated ==

== ENCOUNTER 2024-02-05 13:26 | Outpatient (RCR) | payer OTHER | END 2024-02-06 | LOC: M OUTALCOH 13:26 | PROVIDERS: ATTEND Psychiatry & Neurology Psychiatry | DX: F15.20 Other stimulant dependence, uncomplicated (principal); F17.200 Nicotine dependence, unspecified, uncomplicated ==

== ENCOUNTER 2024-03-04 16:00 | Outpatient (RCR) | payer OTHER | END 2024-03-07 | LOC: M OUTALCOH 16:00 | PROVIDERS: ATTEND Psychiatry & Neurology Psychiatry | DX: F15.20 Other stimulant dependence, uncomplicated (principal); F17.200 Nicotine dependence, unspecified, uncomplicated ==